=== PATIENT | female | born 2000 | race Two or more races ===

== ENCOUNTER 2019-02-21 16:33 | Emergency (ER) | payer OTHER ==
[~2019-02-21] VITALS: Ht 160 cm; Wt 53.5 kg
== END 2019-02-21 22:03 | disposition home or self-care (01) ==
LOC: ER 16:33
DX: J98.8 Other specified respiratory disorders (principal)

== ENCOUNTER 2021-02-18 20:54 | Emergency (ER) | payer OTHER ==
[~2021-02-18] VITALS: Ht 160 cm; Wt 54.0 kg
== END 2021-02-18 23:54 | disposition home or self-care (01) ==
LOC: ER 20:54
DX: S67.01XA Crushing injury of right thumb, initial encounter (principal); S68.021A Partial traumatic metacarpophalangeal amputation of right thumb, initial encounter; W23.0XXA Caught, crushed, jammed, or pinched between moving objects, initial encounter; Y93.89 Activity, other specified; Y92.69 Other specified industrial and construction area as the place of occurrence of the external cause; Y99.8 Other external cause status

== ENCOUNTER 2021-02-21 11:52 | Emergency (ER) | payer OTHER ==
[~2021-02-21] VITALS: Ht 160 cm; Wt 54.0 kg
== END 2021-02-21 21:35 | disposition home or self-care (01) ==
LOC: ER 11:52
DX: S67.01XA Crushing injury of right thumb, initial encounter (principal); S62.521A Displaced fracture of distal phalanx of right thumb, initial encounter for closed fracture; S61.121A Laceration with foreign body of right thumb with damage to nail, initial encounter; W23.0XXA Caught, crushed, jammed, or pinched between moving objects, initial encounter